=== PATIENT | female | born 1970 | race Caucasian/White ===

== ENCOUNTER 2020-04-25 14:26 | Outpatient (CLI) | payer OTHER, SELFPAY ==
--- NOTE | ~2020-04-25 | US_ITS ---
EXAMINATION: US arterial ankle brachial ind DATE: 04/25/2020 15:09 INDICATION: Cold feet TECHNIQUE: Segmental pressures and plethysmographic and Doppler waveforms of the brachial and lower e xtremity arteries were obtained. COMPARISON: None. FINDINGS: Right and left brachial artery pressures of 115 mm Hg and 105 mm Hg, respectively, are concordant (no rmal difference <= 30 mmHg). The right ankle-brachial index (CALVIN) is 1.00 (normal >= 0.9-1.0). The right great toe-brachial index (TBI) is 1.00 (normal >= 0.65). Arterial Doppler waveforms are biphasic. The left CALVIN is 1.04. The left TBI is 1.04. Arterial Doppler waveforms are biphasic. IMPRESSION: Normal examination Reviewed, dictated and finalized at [facility]. Reviewed, dictated and finalized at [facility]. IMPRESSION: Normal examination
== END 2020-04-25 14:27 | disposition home or self-care (01) ==
PROVIDERS: PCP Family Medicine; Visit Provider Family Medicine
DX: E78.2 Mixed hyperlipidemia (principal)
CPT/HCPCS: 93922